=== PATIENT | male | born 1960 | race Caucasian/White ===

== ENCOUNTER → 2021-10-13 13:42 | Outpatient (CLI) | payer OTHER, SELFPAY ==
--- NOTE | ~2021-10-13 | XR_ITS ---
EXAMINATION: XR chest 2V DATE: 10/13/2021 13:59 INDICATION: Shortness of breath. TECHNIQUE: Frontal and lateral views of the chest were obtained on 3 radiographs. 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 No pleural effusion or pneumothorax. The heart size is normal. IMPRESSION: 1. No acute cardiopulmonary disease. Reviewed, dictated and finalized at location [facility]. [facility]
== END ==
PROVIDERS: PCP Family Medicine; Visit Provider Family Medicine
DX: R06.02 Shortness of breath (principal)
CPT/HCPCS: 71046

== ENCOUNTER 2021-12-09 07:43 | Outpatient (CLI) | payer OTHER, SELFPAY ==
--- NOTE | 2021-12-12 14:43 | WPDHOMESLEEP ---
Sleep Study - Home Unattended Date of Study: 12/09/21 Ordering Provider: Praful Hardwick MD Interpreting Provider: Amaya Johnson, DO Home Sleep Study Type: Watch PAT Height: 1.91 m Weight: 111.13 kg Body Mass Index: 30.6 Neck Circumference (inches): 17.75 [place]: 3 Reason for Sleep Study Loud snoring Sleep History The patient is a 61 y/o male with Type 1 Diabetes, BPH, Seasonal Allergies, lumbago with left-sided sciatica, diabetic retinopathy, and B12 deficiency that had a home sleep test ordered by his PCP due to unrefreshing sleep and daytime hypersomnia. The patient works in order to [employer]. He states that he has been snoring for the past 5-7 years but it has worsened within the past 2 years. He rarely awakens from sleep short of breath. He denies awakening at night with heartburn, belching or cough. He frequently snores loud enough that others complain. He denies having trouble sleeping when he has a cold. He denies waking gasping for air throughout the night. He occasionally has breathing problems at night observed by others. He denies sweating excessively at night. He denies having her palpitations or irregular heartbeats during the night. He denies falling asleep during the day while driving. He denies sleep paralysis, cataplexy and hypnagogic / hypnopompic hallucinations. He rarely has nightmares. He rarely has thoughts racing through his mind. He rarely feels sad, depressed or anxious. He rarely notices parts of his body jerk. He occasionally kicks during the night. He denies having crawling and aching feelings in his legs as well as leg pain during the night. He denies grinding his teeth during sleep awakening with morning jaw pain. He occasionally is bothered by pain during the day but never awakened by pain during the night. He occasionally wakes up feeling stiff in the morning with sore or achy muscles. He rarely wakes up with pain in the neck, spine or other joints. He goes to bed at 10:00 p.m. on weekdays and 11:00 p.m. and weekends. Takes him a few minutes to fall asleep. He typically wakes up twice per night to urinate. He is able fall back asleep within a few minutes. He wakes up at 6:00 a.m. on weekdays and 7:30 a.m. on weekends. He typically gets 7 8 hours of sleep per night. He will only stay in bed for a few minutes after waking up in the morning. He currently lives with his . He denies consuming any caffeinated beverages within 2 hours of bedtime. He does not engage in physical exercise before bedtime. He will read watch television before falling asleep. He rarely takes naps in the afternoon or the evening. He drinks 3 caffeinated beverages per day. He drinks 2-3 alcoholic beverages per day. He denies tobacco and recreational drug use. [facility] Past Medical History Medical History Acute non-recurrent maxillary sinusitis BMI 32.0-32.9,adult Chronic left hip pain Colon cancer screening normal colonoscopy at age 51 with recheck in 10 years Cough Dermatosis due to flea bite Hypersomnia (~2018) Male erectile dysfunction, unspecified Seasonal allergic rhinitis Shortness of breath (~09/2021) Family History Family History Mother Patient's mother is in good health Family history of arthritis Father Family history of arthritis Grandparent Family history of Parkinson's disease, Onset Age: 94 Family history of lung disease, Onset Age: 76 Social History Social History Smoking status: Never smoker Alcohol intake: current Alcohol use details: socially Substance use: never Substance use type: does not use Medications Home Medications Medication Instructions Recorded Confirmed Type cyanocobalamin (vitamin B-12) 1,000 mcg PO DAILY 08/20/19 11/15/21 History 1,000 mcg t
[2021-12-12 14:53] VITALS: BMI 30.6
== END 2021-12-12 10:41 | disposition home or self-care (01) ==
LOC: ANHCSM 07:44
PROVIDERS: PCP Family Medicine; Visit Provider Family Medicine
DX: G47.10 Hypersomnia, unspecified (principal); R06.3 Periodic breathing
CPT/HCPCS: 95800

== ENCOUNTER 2021-12-20 08:32 | Outpatient (CLI) | payer OTHER, SELFPAY ==
--- NOTE | 2021-12-20 08:51 | ECHO_ITS ---
Patient Info Name: Real Ying Age: 61 years : 1960 Gender: Male Ht: 75 in Wt: 245 lbs BSA: 2.45 m2 HR: 65 bpm BP: 106 / 69 mmHg Technical Quality: Good Exam Date: 12/20/2021 9:02 AM Exam Location: [facility] Patient Status: Outpatient Admit Date: 12/20/2021 Staff Ordering Physician: Praful Hardwick MD Thrill Performer: Radha Stein RDCS Attending Provider: Praful Hardwick MD Referring Physician: Mulu RICE; Exam Type: CA echo doppler color flow Study Info Indications R06.3 - PERODIC BREATHING Complete two-dimensional, color flow and Doppler transthoracic echocardiogram is performed. Summary 1. Complete two-dimensional, color flow and Doppler transthoracic echocardiogram is performed. 2. Left ventricular chamber dimension is normal. 3. Left ventricular systolic function is normal, estimated at 60-65%. 4. There is mildly increased left ventricular wall thickness. 5. The left ventricular diastolic function is grade II diastolic dysfunction. 6. E/e' 9 is minimally elevated. 7. Global longitudinal strain is normal at -20.5%. 8. There is trace tricuspid valve regurgitation. 9. No pulmonary hypertension, estimated pulmonary arterial systolic pressure is 35 mmHg. Left Ventricle E/e' 9 is minimally elevated. Global longitudinal strain is normal at -20.5%. Left ventricular chamber dimension is normal. Left ventricular systolic function is normal, estimated at 60-65%. There is mildly increased left ventricular wall thickness. The left ventricular diastolic function is grade II diastolic dysfunction. Right Ventricle Right ventricular systolic function is normal and with normal TAPSE 2.7 cm. Right ventricular chamber dimension is normal. Left Atria Left atrial chamber dimension is normal. Right Atria Right atrial chamber dimension is normal. Aortic Valve The aortic valve is trileaflet. There is no aortic valve stenosis. There is no aortic valve regurgitation. Pulmonic Valve There is no pulmonic regurgitation. Mitral Valve There is no mitral valve stenosis. There is no mitral valve regurgitation. Tricuspid Valve There is trace tricuspid valve regurgitation. No pulmonary hypertension, estimated pulmonary arterial systolic pressure is 35 mmHg. Pericardium/Pleural There is no pericardial effusion. Inferior Vena Cava Normal inferior vena cava with >50% collapse upon inspiration consistent with normal right atrial pressure, 5 mmHg. Aorta The aortic root size at the sinus of Valsalva is normal. Left Ventricular Outflow Tract Name Value Normal LVOT 2D LVOT Diameter 2.0 cm LVOT Doppler LVOT Peak Gradient 3 mmHg LVOT Mean Gradient 2 mmHg LVOT VTI 21 cm LVOT VTI/AV VTI Ratio 1.0 LVOT Stroke Volume 62 ml LVOT CO 3.7 l/min LVOT CI 1.5 l/min/m2 Pulmonic Valve Name
== END 2021-12-20 08:33 | disposition home or self-care (01) ==
PROVIDERS: PCP Family Medicine; Visit Provider Family Medicine
DX: R06.3 Periodic breathing (principal)
CPT/HCPCS: 93306

== ENCOUNTER 2022-01-04 07:33 | Outpatient (CLI) | payer OTHER, SELFPAY ==
--- NOTE | 2022-01-10 18:26 | WPDSLEEPSTUD ---
Sleep Study Date of Study: 01/04/22 Ordering Provider: Praful Hardwick MD Interpreting Physician: Felicia Blood MD Sleep Study Type: CPAP Titration Height: 1.91 m Weight: 111.13 kg Body Mass Index: 30.6 Neck Circumference (inches): 18 [place]: 6 Reason for Sleep Study Home sleep test 12/09/2021 with moderate sleep apnea, AHI 23.9, central apnea index 13.3. He presents for a CPAP titraiton. Sleep History Real Ying is a 61 year old man with Type 1 Diabetes, BPH, seasonal allergies, lumbago with left-sided sciatica, diabetic retinopathy, and B12 deficiency. His home sleep test on 12/09/2021 showed an AHI of 23.9, elevated central apnea index of 13.3 with 6% of the study showing Farhat-Pathak respirations. He had nonrestorative sleep and daytime hypersomnia. He states that he has been snoring for the past 5-7 years but it has worsened within the past 2 years. He rarely awakens from sleep short of breath. He denies awakening at night with heartburn, belching or cough. He frequently snores loudly enough that others complain. He denies having trouble sleeping when he has a cold. He denies waking gasping for air during the night. He occasionally has breathing problems at night observed by others. He denies sweating excessively at night. He denies having palpitations or irregular heartbeats during the night. He denies falling asleep during the day while driving. He denies feeling paralyzed on waking or falling asleep, muscle weakness with strong emotion, or vivid dreams on waking or falling asleep. He rarely has nightmares. He rarely has thoughts racing through his mind. He rarely feels sad, depressed or anxious. He rarely notices parts of his body jerk. He occasionally kicks during the night. He denies having crawling and aching feelings in his legs as well as leg pain during the night. He denies grinding his teeth during sleep or waking with morning jaw pain. He occasionally is bothered by pain during the day but never awakened by pain during the night. He occasionally wakes up feeling stiff in the morning with sore or achy muscles. He rarely wakes up with pain in the neck, spine or other joints. Normal bedtime is 10:00 p.m. on weekdays and 11:00 p.m. on weekends. It takes only a few minutes to fall asleep. He typically wakes up twice per night to urinate. He is able to return to sleep within a few minutes. He wakes up at 6:00 a.m. on weekdays and 7:30 a.m. on weekends. He typically gets 7-8 hours of sleep per night. He will only stay in bed for a few minutes after waking in the morning. He denies consuming any caffeinated beverages within 2 hours of bedtime. He does not engage in physical exercise before bedtime. He will read watch television before falling asleep. He rarely takes naps in the afternoon or the evening. Habits: No tobacco. He drinks 3 caffeinated beverages per day; 2-3 alcoholic beverages per day. No recreational drug use. PMFSH Past Medical History Medical History Acute non-recurrent maxillary sinusitis BMI 32.0-32.9,adult Chronic left hip pain Colon cancer screening normal colonoscopy at age 51 with recheck in 10 years Cough Dermatosis due to flea bite Gastro-esophageal reflux disease without esophagitis Grade II diastolic dysfunction (12/20/21) LVH and grade 2 diastolic dysfunction on echocardiogram 12/20/2021 Hypersomnia (~2018) Male erectile dysfunction, unspecified Obstructive sleep apnea AHI of 23.9 on home sleep study 12/09/2021 with central sleep apnea as well Seasonal allergic rhinitis Shortness of breath (~09/2021) Family History Family History Mother Patient's mother is in good health Family history of arthritis Father Family history of arthritis Grandparent Family history of Parkinson's disease, Onset Age: 94 Family history of lung disease, Onset Age: 76
[2022-01-10 19:32] VITALS: BMI 30.6
== END 2022-01-05 06:08 | disposition home or self-care (01) ==
LOC: ANHCSM 07:34
PROVIDERS: PCP Family Medicine; Visit Provider Family Medicine
DX: G47.33 Obstructive sleep apnea (adult) (pediatric) (principal); G47.31 Primary central sleep apnea; G47.61 Periodic limb movement disorder
CPT/HCPCS: 95811

== ENCOUNTER 2022-07-11 00:38 | Day surgery (SDC) | payer OTHER, SELFPAY ==
[2022-06-22 13:38] VITALS: BMI 30.7
[2022-07-11 06:30] VITALS: BP 146/71; PULSE 64; RESP 18; TEMP 36.1; O2SAT 99
[2022-07-11] MEDS: LACTATED RINGERS 1,000 ML 150 ML IV CONT (06:40)
--- NOTE | 2022-07-11 07:13 | WPDANESEPPF ---
Anes - Initial Pre Proc Eval Procedure: Operation Date: 07/11/22 07:30 Proposed Procedures p Screening Colonoscopy - Jose Weeks MD Date/Time: 07/11/22 07:13 Surgeon: Jose Weeks MD Pre Op Diagnosis: neoplasm screening Patient Data Age: 62 Gender: M Height: 1.91 m Weight: 111.2 kg Last Vital Signs Temp 97.0 F L 07/11/22 06:30 Pulse 64 07/11/22 06:30 Resp 18 07/11/22 06:30 BP 146/71 H 07/11/22 06:30 Pulse Ox 99 07/11/22 06:30 O2 Del Method Room Air 07/11/22 06:30 Allergies Allergy/AdvReac Type Severity Reaction Status Date / Time No Known Allergies Allergy Verified 07/11/22 06:28 Home Medications Medication Instructions Recorded Confirmed Type cyanocobalamin (vitamin B-12) 1,000 mcg PO DAILY 08/20/19 06/22/22 History 1,000 mcg tablet cholecalciferol (vitamin D3) 50 2,000 unit PO DAILY 12/25/19 06/22/22 History mcg (2,000 unit) tablet blood-glucose meter,continuous #1 ea 09/14/20 06/22/22 Rx (Dexcom G6 Civil Engineering Manager misc) blood-glucose transmitter (Dexcom #1 ea 09/14/20 06/22/22 Rx G6 Transmitter device) blood sugar diagnostic #400 ea 06/27/21 06/22/22 Rx finasteride 5 mg tablet 5 mg PO DAILY #90 tabs 09/20/21 06/22/22 Rx hydrocodone 7.5 mg-acetaminophen 1 tablet PO Q6H PRN pain #120 tabs 09/23/21 06/22/22 Rx 325 mg tablet ibuprofen 800 mg tablet 800 mg PO TID PRN pain #90 tabs 10/18/21 06/22/22 Rx losartan 50 mg tablet 50 mg PO DAILY #90 tabs 12/05/21 06/22/22 Rx insulin glargine 100 unit/mL (3 15 unit (0.15 mL) subcut QPM #45 mL 12/15/21 06/22/22 Rx mL) subcutaneous pen (Lantus Solostar U-100 Insulin) pravastatin 20 mg tablet 20 mg PO DAILY #90 tabs 03/03/22 06/22/22 Rx budesonide 90 mcg/actuation breath See Rx Instructions .Route 03/29/22 06/22/22 Rx activated powder inhaler .COMPLEX #2 ea (Pulmicort Flexhaler) tamsulosin 0.4 mg capsule (Flomax) 0.4 mg PO DAILY #90 caps 04/03/22 06/22/22 Rx insulin lispro 100 unit/mL 15 unit (0.15 mL) subcut TID #45 mL 04/18/22 06/22/22 Rx subcutaneous pen (Humalog KwikPen (U-100) Insulin) blood-glucose sensor (Dexcom G6 #3 ea 05/18/22 06/22/22 Rx Sensor device) pen needle, diabetic 29 gauge x #400 ea 06/21/22 06/22/22 Rx 1/2 (Ultra-Thin II Insulin Pen [place]) Patient hx anesthesia problems: none Family hx anesthesia problems: none Results Review: All pre-operative results and documents have been reviewed as part of the pre-operative evaluation. [facility] Past Medical History Medical History (Updated 07/03/22 @ 08:01 by Praful Hardwick MD) Acute non-recurrent maxillary sinusitis BMI 29.0-29.9,adult BMI 32.0-32.9,adult Chronic left hip pain Colon cancer screening normal colonoscopy at age 51 with recheck in 10 years Cough Dermatosis due to flea bite Gastro-esophageal reflux disease without esophagitis Grade II diastolic dysfunction (12/20/21) LVH and grade 2 diastolic dysfunction on echocardiogram 12/20/2021 Hypersomnia (~2018) Male erectile dysfunction, unspecified Obstructive sleep apnea (~11/2021) AHI of 23.9 on home sleep study 12/09/2021 with central sleep apnea as well . CPAP titration 01/04/2022 with optimal pressure of 12 cm of water pressure with 2 EPR with medium rest med AirFit F 30 fullface mask and heated humidity.Switch APAP to 8-20 cm water pressure 07/03/2022 Overweight (BMI 25.0-29.9) Seasonal allergic rhinitis Shortness of breath (~09/2021) Family History Family History Mother Patient's mother is in good health Family history of arthritis Father Family history of arthritis Grandparent Family history of Parkinson's disease, Onset Age: 94 Family history of lung disease, Onset Age: 76 Social History Social History (Updated 05/30/22 @ 10:23 by Vikki Burrell MA) Smoking status: Never smoker Second hand tobacco smoke exposure: No Alcohol intake: current Drinks per week:
[2022-07-11 07:15] LABS: Glucose Point of Care 232 mg/dl (65-105)
--- NOTE | 2022-07-11 07:26 | PM.HPGS ---
History of Present Illness History of Present Illness Consent: Risks, benefits, and alternatives have been discussed and questions answered. Patient agrees to proceed with procedure. Chief complaint: neoplasm screening Narrative: Real Ying is a 62 year old male Presents for screening colonoscopy. Patient's current weight appetite and bowel movements are normal. Patient denies abdominal pain. He has had no bleeding. Family history is noncontributory. Patient's last colonoscopy 10 years ago was unremarkable. He presents today for neoplasia screening. Review of Systems Review of Systems: Review of systems noncontributory. [facility] Past Medical History Medical History (Updated 07/11/22 @ 07:27 by Jose Weeks MD) Acute non-recurrent maxillary sinusitis BMI 29.0-29.9,adult BMI 32.0-32.9,adult Chronic left hip pain Colon cancer screening normal colonoscopy at age 51 with recheck in 10 years Cough Dermatosis due to flea bite Gastro-esophageal reflux disease without esophagitis Grade II diastolic dysfunction (12/20/21) LVH and grade 2 diastolic dysfunction on echocardiogram 12/20/2021 Hypersomnia (~2018) Male erectile dysfunction, unspecified Obstructive sleep apnea (~11/2021) AHI of 23.9 on home sleep study 12/09/2021 with central sleep apnea as well . CPAP titration 01/04/2022 with optimal pressure of 12 cm of water pressure with 2 EPR with medium rest med AirFit F 30 fullface mask and heated humidity.Switch APAP to 8-20 cm water pressure 07/03/2022 Overweight (BMI 25.0-29.9) Seasonal allergic rhinitis Shortness of breath (~09/2021) Family History Family History Mother Patient's mother is in good health Family history of arthritis Father Family history of arthritis Grandparent Family history of Parkinson's disease, Onset Age: 94 Family history of lung disease, Onset Age: 76 Social History Social History (Updated 05/30/22 @ 10:23 by Vikki Burrell MA) Smoking status: Never smoker Second hand tobacco smoke exposure: No Alcohol intake: current Drinks per week: 14 Substance use type: does not use Living arrangements: other Additional living arrangements comments: With sp Meds Home Medications and Allergies Home Medications Medication Instructions Recorded Confirmed Type cyanocobalamin (vitamin B-12) 1,000 mcg PO DAILY 08/20/19 06/22/22 History 1,000 mcg tablet cholecalciferol (vitamin D3) 50 2,000 unit PO DAILY 12/25/19 06/22/22 History mcg (2,000 unit) tablet blood-glucose meter,continuous #1 ea 09/14/20 06/22/22 Rx (Dexcom G6 Drum Puller misc) blood-glucose transmitter (Dexcom #1 ea 09/14/20 06/22/22 Rx G6 Transmitter device) blood sugar diagnostic #400 ea 06/27/21 06/22/22 Rx finasteride 5 mg tablet 5 mg PO DAILY #90 tabs 09/20/21 06/22/22 Rx hydrocodone 7.5 mg-acetaminophen 1 tablet PO Q6H PRN pain #120 tabs 09/23/21 06/22/22 Rx 325 mg tablet ibuprofen 800 mg tablet 800 mg PO TID PRN pain #90 tabs 10/18/21 06/22/22 Rx losartan 50 mg tablet 50 mg PO DAILY #90 tabs 12/05/21 06/22/22 Rx insulin glargine 100 unit/mL (3 15 unit (0.15 mL) subcut QPM #45 mL 12/15/21 06/22/22 Rx mL) subcutaneous pen (Lantus Solostar U-100 Insulin) pravastatin 20 mg tablet 20 mg PO DAILY #90 tabs 03/03/22 06/22/22 Rx budesonide 90 mcg/actuation breath See Rx Instructions .Route 03/29/22 06/22/22 Rx activated powder inhaler .COMPLEX #2 ea (Pulmicort Flexhaler) tamsulosin 0.4 mg capsule (Flomax) 0.4 mg PO DAILY #90 caps 04/03/22 06/22/22 Rx insulin lispro 100 unit/mL 15 unit (0.15 mL) subcut TID #45 mL 04/18/22 06/22/22 Rx subcutaneous pen (Humalog KwikPen (U-100) Insulin) blood-glucose sensor (Dexcom G6 #3 ea 05/18/22 06/22/22 Rx Sensor device) pen needle, diabetic 29 gauge x #400 ea 06/21/22 06/22/22 Rx 1/2 (Ultra-Thin II Insulin Pen [place]) Allergies Allergy/AdvReac Type
[2022-07-11 07:49] VITALS: BP 101/79; PULSE 62; RESP 22; O2SAT 98
[2022-07-11 07:59] VITALS: BP 111/73; PULSE 64; RESP 17; O2SAT 98
[2022-07-11 08:04] LABS: Glucose Point of Care 239 mg/dl (65-105)
[2022-07-11 08:09] VITALS: BP 120/68; PULSE 59; RESP 19; O2SAT 96
== END 2022-07-11 08:19 | disposition home or self-care (01) ==
PROVIDERS: PCP Family Medicine; Visit Provider Internal Medicine Gastroenterology
PROC: 0DJD8ZZ Inspection of Lower Intestinal Tract, Via Natural or Artificial Opening Endoscopic (ICD-10-PCS; CPT 45378; principal; 2022-07-11 07:30)
DX: Z12.11 Encounter for screening for malignant neoplasm of colon (principal); K64.8 Other hemorrhoids; K21.9 Gastro-esophageal reflux disease without esophagitis; G47.10 Hypersomnia, unspecified; G47.33 Obstructive sleep apnea (adult) (pediatric); Z79.4 Long term (current) use of insulin; E66.9 Obesity, unspecified; Z68.30 Body mass index [BMI] 30.0-30.9, adult
CPT/HCPCS: 45378; 82948; J2704; J7120

== ENCOUNTER 2025-01-13 13:39 | Outpatient (CLI) | payer OTHER, SELFPAY ==
--- NOTE | 2025-01-13 14:15 | NEURO_ITS ---
Impression: # Complains of numbness of left hand. Non-diabetic. ? # Left Carpal Tunnel Syndrome. ? # No ulnar neuropathy. ? # Normal needle/EMG exam. ?Nerve Conduction Studies Anti Sensory Summary Table ?Stim Site NR Peak (ms) P-T Amp (?V) Site1 Site2 Delta-P (ms) Dist (cm) Randy (m/s) Left Median Anti Sensory (2-3nd Digit) Wrist ? 4.6 12.9 Wrist 2-3nd Digit 4.6 14.0 30 Wrist ? 4.6 12.2 Wrist 2-3nd Digit 4.6 14.0 30 Left Radial Anti Sensory (Base 1st Digit) Wrist ? 2.6 13.1 Wrist Base 1st Digit 2.6 0.0 Left Ulnar Anti Sensory (5th Digit) Wrist ? 2.7 13.7 Wrist 5th Digit 2.7 14.0 52 Motor Summary Table ?Stim Site NR Onset (ms) O-P Amp (mV) Site1 Site2 Delta-0 (ms) Dist (cm) Randy (m/s) Left Median Motor (Abd Poll Brev) Wrist ? 4.3 4.4 Elbow Wrist 5.3 33.0 62 Elbow ? 9.6 4.0 Left Ulnar Motor Run #2 (Abd Dig Minimi) Wrist ? 2.8 6.7 A Elbow Wrist 5.6 33.0 59 A Elbow ? 8.4 5.4 B Elbow Wrist 4.7 28.0 60 B Elbow ? 7.5 4.2 F Wave Studies ?NR F-Lat (ms) L-R F-Lat (ms) Left Median (Mrkrs) (Abd Poll Brev) ? 32.32 Left Ulnar (Mrkrs) (Abd Dig Min) ? 32.42 EMG ?Side Muscle Nerve Root Ins Act Fibs Amp Dur Recrt Comment Left 1stDorInt Ulnar C8-T1 Nml Nml Nml Nml Nml Left Ext Indicis Radial (Post Int) C7-8 Nml Nml Nml Nml Nml Left Ext Digitorum Radial (Post Int) C7-8 Nml Nml Nml Nml Nml Left BrachioRad Radial C5-6 Nml Nml Nml Nml Nml Left PronatorTeres Median C6-7 Nml Nml Nml Nml Nml Left Abd Poll Brev Median C8-T1 Nml Nml Nml Nml Nml Left ABD Dig Min Ulnar C8-T1 Nml Nml Nml Nml Nml Right FlexPolLong Median (Ant Int) C7-8 Nml Nml Nml Nml Nml Right Abd Poll Long Radial (Post Int) C7-8 Nml Nml Nml Nml Nml MTDD
--- OUTSIDE RECORDS SUMMARY | 2025-01-13 14:52 | XMS_ITS | Clinical Summary ---
Author Organization [facility] Address [address] [place] [id number] Care Team Providers Care Dipper Fish Name Role Phone Unavailable Primary Care Provider Unavailabl e Social History Tobacco Use Types Packs/Day Years Used Date Smoking Tobacco: Never Assessed Sex and Gender Information Value Date Recorded Sex Assigned at Not on file Legal Sex Male 6:25 PM CDT Gender Identity Not on file Sexual Orientation Not on file Plan of Treatment Health Maintenance Due Date Last Done Comments Colorectal Cancer Screening Colonoscopy (10 Years) 1960 Annual Physical 01/18/1964 Hepatitis C 1979 DTaP, Tdap and Td Vaccines ( 1 - Tdap) 01/18/1980 Zoster Vaccines (1 of 2) 2011 COVID-19 Vaccine ( - 2023-2 5 season) 2024 Influenza Adult (#1) 2024 RSV Immunization or 60+ Years (1 - 1-dose 75+ series) 01/18/2036 Meningococcal B Vaccine Aged Out No l onger eligible based on patient's age to complete this topic Meningococcal Vaccine Aged Out No wayne scottie eligible based on patient's age to complete this topic Pneumococcal Vaccine: Pediat rics (0 to 5 Years) and At-Risk Patients (6 to 64 Years) Aged Out No longer eligible b ased on patient's age to complete this topic RSV Immunizations Under 20 Months Aged Out No longer eligible based on patient's age to complete this topic
== END 2025-01-13 13:40 | disposition home or self-care (01) ==
PROVIDERS: PCP Family Medicine; Visit Provider Family Medicine
DX: G56.02 Carpal tunnel syndrome, left upper limb (principal)
CPT/HCPCS: 95886; 95909